=== PATIENT | female | born 1935 | race Caucasian/White ===

== ENCOUNTER 2020-07-01 16:12 | Emergency (ER) | payer OTHER ==
[2020-07-01 19:34] LABS: HEMOGLOBIN 14.7 gm/dl (12.3-15.3); RED BLOOD COUNT 4.78 M/UL (4.00-5.10); WHITE BLOOD COUNT 6.6 K/UL (4.5-11.0)
[2020-07-01 19:45] LABS: BUN/CREATININE RATIO 12 (0-10)
== END 2020-07-02 10:25 | disposition home or self-care (01) ==
LOC: ER1 16:12
PROVIDERS: Physician Assistant
DX: K62.5 Hemorrhage of anus and rectum (principal); E11.9 Type 2 diabetes mellitus without complications; I10 Essential (primary) hypertension; Z90.49 Acquired absence of other specified parts of digestive tract; Z90.710 Acquired absence of both cervix and uterus; Z79.899 Other long term (current) drug therapy; Z98.890 Other specified postprocedural states
CPT/HCPCS: 80053; 81001; 82272; 85025; 87086; 99283